=== PATIENT | male | born 1965 | race Caucasian/White ===

== ENCOUNTER 2017-08-31 11:17 | Emergency (ER) | payer OTHER ==
[~2017-08-31] VITALS: Ht 175.3 cm; Wt 90.0 kg
[2017-08-31 11:20] VITALS: BP 114/81
== END 2017-08-31 19:04 | disposition left against medical advice (07) ==
LOC: ER 11:30
DX: M79.604 Pain in right leg (principal); Z53.21 Procedure and treatment not carried out due to patient leaving prior to being seen by health care provider